=== PATIENT | female | born 1980 | race Caucasian/White ===

== ENCOUNTER 2016-11-30 20:27 | Emergency (ER) | payer OTHER ==
[2016-11-30 20:44] VITALS: BP 122/70; PULSE 93; RESP 20; TEMP 98.7
[2016-11-30] MEDS ORDERED: IBUPROFEN 800 MG TAB PO STA (20:53)
--- NOTE | 2016-11-30 21:04 | ED ---
Lower Extremity Injury HPI - General Chief Complaint: Extremity Injury, Lower Stated Complaint: Rt foot injury (trampoline) Time Seen by Provider: 11/30/16 20:47 Source: patient Mode of arrival: ambulatory Limitations: no limitations - History of Present Illness Initial Comments: Patient is a 36-year-old white female presenting to the emergency department with complaints of right ankle and right foot pain and swelling. Patient states she was jumping on a trampoline at [employer] when she fell and twisted her ankle. Patient states she heard a pop when it happened Patient denies previous injury or surgery to her right lower extremity. Patient currently rates her pain 8 out of 10, described as sharp, exacerbated with movement, somewhat relieved with rest. Patient was unable to ambulate at the scene of accident, is able to ambulate in the emergency department. Patient denies recent illness, chills, fevers, shortness of breath, nausea, chest pain, or abdominal pain. Patient denies numbness or tingling. No treatment prior to arrival. Type of Injury: unknown Place: other Improves With: immobilization Worsens With: weight bearing, movement, palpation Context: jumping Associated Symptoms: snap/pop sensation, swelling, unable to bear weight - Related Data Previous Rx's Medication Instructions Recorded HYDROcodone/APAP 5-325MG [[place] 1 tab PO Q4HR PRN #12 tab 11/30/16 5-325] Ibuprofen [Motrin] 800 mg PO Q8HR PRN #20 tab 11/30/16 Allergies Allergy/AdvReac Type Severity Reaction Status Date / Time No Known Allergies Allergy Verified 11/30/16 20:43 Review of Systems ROS Statement: Those systems with pertinent positive or pertinent negative responses have been documented in the HPI. ROS Other: All systems not noted in ROS Statement are negative. Past Medical History Past Medical History: No Reported History History of Any Multi-Drug Resistant Organisms: None Reported Past Surgical History: Tubal Ligation Past Psychological History: No Psychological Hx Reported Smoking Status: Never smoker Past Alcohol Use History: None Reported Past Drug Use History: None Reported General Exam Limitations: no limitations General appearance: alert, in no apparent distress Head exam: Present: atraumatic, normocephalic Eye exam: Present: normal appearance Neck exam: Present: normal inspection, full ROM. Absent: tenderness Respiratory exam: Present: normal lung sounds bilaterally. Absent: wheezes, rales, rhonchi Cardiovascular Exam: Present: regular rate, normal rhythm, normal heart sounds GI/Abdominal exam: Present: soft, normal bowel sounds. Absent: distended, tenderness Right Lower Leg exam: Present: normal inspection, full ROM. Absent: tenderness, swelling Ankle exam: Absent: tenderness, swelling Foot/Toe exam: Present: tenderness (Tenderness, swelling, and ecchymosis to the lateral aspect of right ankle), swelling, ecchymosis Neurovascular tendon exam: Present: no vascular compromise, significant pain with passive ROM of distal joint. Absent: pulse deficit, abnormal cap refill, motor deficit, sensory deficit, tendon deficit, extremity cold to touch, pallor , abnormal 2-point discrimination, decreased fine/light touch, foot drop Gait: not tested/not observed Back exam: Present: normal inspection Neurological exam: Present: alert, oriented X3, other (No focal deficits) Psychiatric exam: Present: normal affect, normal mood Skin exam: Present: warm, dry, intact, normal color Course Vital Signs 11/30/16 20:40 Temperature 98.7 F Pulse Rate 93 Respiratory 20 Rate Blood Pressure 122/70 O2 Sat by Pulse 100 Oximetry Medical Decision Making - Medical Decision Making Right ankle sprain. X-ray of right ankle negative for acute fracture. Krishna wrap applied to right ankle and foot. Patient instructed to follow-up with orthopedic surgeon if pain persists in 7-10 days for further imaging. Patient agrees to treatment plan. This has instructions and return parameters reviewed. - Radiology Data Radiology results: report reviewed Right foot x-ray: No acute fractures are evident. Joint spaces are preserved. Soft tissue normal. Right ankle x-ray: Ankle block T6 intact. Soft tissues are normal. No acute fractures are evident. Disposition Clinical Impression: Sprain of right ankle Disposition: HOME SELF-CARE Condition: Good Instructions: Ankle Sprain (ED) Additional Instructions: Avoid activity that causes pain Ice 20 minutes 4 times a day usually for 2-3 days Krishna wrap to provide support and limit swelling Keep elevated as much as possible 24-48 hours. Continue prescribed anti-inflammatory and opiates. Return to the emergency department with symptoms of increased swelling, pain, numbness, tingling, or foot feeling cold to touch. Follow-up with primary service and orthopedic service as directed in 7-10 days if pain persists for follow-up x-ray. Prescriptions: HYDROcodone/APAP 5-325MG [[place] 5-325] 1 tab PO Q4HR PRN #12 tab PRN Reason: Pain Ibuprofen [Motrin] 800 mg PO Q8HR PRN #20 tab PRN Reason: Pain Referrals: Kiel Cardona MD [Primary Care Provider] - 1-2 days Juan Jose Novoa MD [STAFF PHYSICIAN] - 1-2 days Time of Disposition: 21:48
--- NOTE | 2016-11-30 21:36 | XR ---
EXAMINATION TYPE: XR ankle complete RT DATE OF EXAM: 11/30/2016 9:04 PM COMPARISON: NONE HISTORY: Pain TECHNIQUE: 3 view right ankle FINDINGS: Ankle mortise is intact. Soft tissues are normal. No acute fractures are evident. Follow-up study can be performed 7-10 days from acute trauma for continued pain. IMPRESSION: 1. Normal three-view right ankle
--- NOTE | 2016-11-30 21:37 | XR ---
EXAMINATION TYPE: XR foot complete RT DATE OF EXAM: 11/30/2016 9:04 PM COMPARISON: NONE HISTORY: Injury, pain TECHNIQUE: 3 view right foot FINDINGS: No acute fractures are evident. Joint spaces are preserved. Soft tissues are normal. Follow -up exam can be performed 7-10 days from acute trauma for continued pain IMPRESSION: 1. Normal three-view right foot
== END 2016-11-30 21:54 | disposition home or self-care (01) ==
LOC: EC 20:27
DX: S93.401A Sprain of unspecified ligament of right ankle, initial encounter (principal); Y93.44 Activity, trampolining
CPT/HCPCS: 99284

== ENCOUNTER 2019-09-02 20:32 | Emergency (ER) | payer BC, OTHER ==
[2019-09-02] MEDS ORDERED: ONDANSETRON 4 MG/2 ML VIAL IVP STA (21:33)
[2019-09-02] MEDS ORDERED: KETOROLAC 30 MG/ML 1 ML VIAL IVP STA (21:33)
[2019-09-02] MEDS ORDERED: SODIUM CHLORIDE 0.9% 1,000 ML IV STA (21:33)
[2019-09-02] MEDS ORDERED: HYDROmorphone 0.5 MG/0.5 ML SYRINGE IVP STA (21:33)
[2019-09-02 21:46] LABS: Basophils % (A) 1 %; Eosinophils # (A) 0.1 k/uL (0-0.7); Eosinophils % (A) 1 %; HCT 37.4 % (34.0-46.0); HGB 12.8 gm/dL (11.4-16.0); Lymphocytes # (A) 1.7 k/uL (1.0-4.8); Lymphocytes % (A) 23 %; MCH 29.8 pg (25.0-35.0); MCHC 34.2 g/dL (31.0-37.0); MCV 87.3 fL (80.0-100.0); Mean Platelet Volume 6.8; Monocytes # (A) 0.5 k/uL (0-1.0); Monocytes % (A) 7 %; Neutrophils % (A) 66 %; Platelet Count 280 k/uL (150-450); RBC 4.28 m/uL (3.80-5.40); RDW 12.7 % (11.5-15.5); WBC 7.5 k/uL (3.8-10.6)
[2019-09-02 21:55] LABS: Albumin 4.3 g/dL (3.5-5.0); Calcium 9.3 mg/dL (8.4-10.2); Potassium 4.2 mmol/L (3.5-5.1); Total Bilirubin 0.7 mg/dL (0.2-1.3); Total Protein 7.6 g/dL (6.3-8.2)
[2019-09-02 21:56] LABS: Appearance,Urine Cloudy (Clear); Bilirubin,Urine Negative (Negative); Blood,Urine Large (Negative); Color,Urine Light Red; Glucose,Urine (UA) Negative (Negative); Ketones,Urine 1+ (Negative); Leukocyte Esterase,Urine Large (Negative); Mucus,Urine Few /hpf; Nitrite,Urine Negative (Negative); PH, Urine 6.5 (5.0-8.0); Protein,Urine 1+ (Negative); RBC,Urine >182 /hpf (0-5); Squamous Epithelial Cell,Urine 28 /hpf (0-4); Urobilinogen,Urine <2.0 mg/dL (<2.0)
[2019-09-02] MEDS ORDERED: TAMSULOSIN 0.4 MG CAP.ER.24H PO STA (21:58)
--- NOTE | 2019-09-02 22:05 | XR ---
EXAMINATION TYPE: XR KUB X 2 DATE OF EXAM: 09/02/2019 9:54 PM CLINICAL HISTORY: Pain on the left TECHNIQUE: 2 upright views COMPARISON: None. FINDINGS: Scattered gas is seen in non-distended small bowel loops. Gas and fecal material is seen in non-distended colon. Excessive volume of pancolonic stool is noted. There is no visceromegaly, pneumoperitoneum, or abnormal calcification appreciated. The visualized lung bases and pleural spaces are negative. No acute skeletal findings. IMPRESSION: No acute radiographic process.
[2019-09-02] MEDS ORDERED: ACET/COD 300 MG/30 MG STARTER PACK 6 TAB BTL PO STA (22:29)
[2019-09-02] MEDS ORDERED: IBUPROFEN 600 MG STARTER PACK 4 TAB BTL PO STA (22:29)
--- NOTE | 2019-09-02 22:31 | ED ---
General Adult HPI - General Chief complaint: Urogenital Stated complaint: kidney stone Time Seen by Provider: 09/02/19 21:15 Source: patient Mode of arrival: ambulatory - History of Present Illness Initial comments: 39-year-old female patient presents to the emergency department today for evaluation of left flank pain. Patient states this started early this morning. States it has been waxing and waning. States it does radiate around to the left lower quadrant abdomen. Patient is reporting dark urine and frequency of urination. Denies nausea or vomiting. Denies fever or chills. She has had kidney stones in the past and states this feels similar. She has not taken any medication for her symptoms. She has had tubal ligation but denies other abdominal surgeries. Patient denies any recent rash, shortness breath, chest pain, diarrhea, constipation, back pain, numbness, tingling, dizziness, weakness, headache, visual changes, or any other complaints. - Related Data Previous Rx's Medication Instructions Recorded HYDROcodone/APAP 5-325MG [[place] 1 tab PO Q4HR PRN #12 tab 11/30/16 5-325] Ibuprofen [Motrin] 800 mg PO Q8HR PRN #20 tab 11/30/16 Ibuprofen [Motrin] 600 mg PO Q8HR PRN #30 tab 09/02/19 Ondansetron [Zofran ODT] 4 mg PO Q8HR PRN #10 tab 09/02/19 Tamsulosin HCl [Flomax] 0.4 mg PO DAILY #7 cap 09/02/19 Allergies Allergy/AdvReac Type Severity Reaction Status Date / Time No Known Allergies Allergy Verified 09/02/19 21:13 Review of Systems ROS Statement: Those systems with pertinent positive or pertinent negative responses have been documented in the HPI. ROS Other: All systems not noted in ROS Statement are negative. Past Medical History Past Medical History: No Reported History History of Any Multi-Drug Resistant Organisms: None Reported Past Surgical History: Tubal Ligation Past Psychological History: No Psychological Hx Reported Smoking Status: Never smoker Past Alcohol Use History: None Reported Past Drug Use History: None Reported General Exam General appearance: alert, in no apparent distress, other (This is a well- developed, well-nourished adult female patient in no acute distress. Eitel signs upon presentation are temperature 97.9F, pulse 89, respirations 16, blood pressure 155/96, pulse ox 99% on room air.) Eye exam: Present: normal appearance, PERRL, EOMI. Absent: scleral icterus, conjunctival injection, periorbital swelling ENT exam: Present: normal exam, normal oropharynx, mucous membranes moist Respiratory exam: Present: normal lung sounds bilaterally. Absent: respiratory distress, wheezes, rales, rhonchi, stridor Cardiovascular Exam: Present: regular rate, normal rhythm, normal heart sounds. Absent: systolic murmur, diastolic murmur, rubs, gallop, clicks GI/Abdominal exam: Present: soft, normal bowel sounds. Absent: distended, tenderness, guarding, rebound, rigid Back exam: Present: normal inspection. Absent: CVA tenderness (R), CVA tenderness (L) Neurological exam: Present: alert, oriented X3, CN II-XII intact Psychiatric exam: Present: normal affect, normal mood Skin exam: Present: warm, dry, intact, normal color. Absent: rash Course Vital Signs 09/02/19 09/02/19 21:11 22:45 Temperature 997.9 F H 97.4 F L Pulse Rate 89 75 Respiratory 16 18 Rate Blood Pressure 155/96 123/73 O2 Sat by Pulse 99 98 Oximetry Medical Decision Making - Medical Decision Making 39-year-old female patient presents to the emergency department today for evaluation of left flank pain. Physical examination did reveal mild left upper abdominal pressure. Labs reviewed and did reveal urinalysis showing cloudy appearance with 1+ protein, 1+ ketones, large amount of blood, large leukocyte esterase, greater than 182 red blood cells, 129 white blood cells, 28 squamous epithelial cells, and to mucus. She is not . Patient symptoms and urine findings are consistent with kidney stone. We'll start Flomax and pain medications. She'll be discharged WITH urologist for recheck in 1-2 days. Return parameters discussed in detail. She verbalizes understanding and agrees with this plan. - Lab Data Result diagrams: 09/02/19 21:33 09/02/19 21:33 Lab Results 09/02/19 09/02/19 09/02/19 Range/Units 21:32 21:32 21:33 WBC (3.8-10.6) k/uL RBC (3.80-5.40) m/uL Hgb (11.4-16.0) gm/dL Hct (34.0-46.0) % MCV (80.0-100.0) fL MCH (25.0-35.0) pg MCHC (31.0-37.0) g/dL RDW (11.5-15.5) % Plt Count (150-450) k/uL Neutrophils % % Lymphocytes % % Monocytes % % Eosinophils % % Basophils % % Neutrophils # (1.3-7.7) k/uL Lymphocytes # (1.0-4.8) k/uL Monocytes # (0-1.0) k/uL Eosinophils # (0-0.7) k/uL Basophils # (0-0.2) k/uL Sodium 140 (137-145) mmol/L Potassium 4.2 (3.5-5.1) mmol/L Chloride 108 H (98-107) mmol/L Carbon Dioxide 23 (22-30) mmol/L Anion Gap 9 mmol/L BUN 22 H (7-17) mg/dL Creatinine 1.04 (0.52-1.04) mg/dL Est GFR (CKD-EPI)AfAm 80 (>60 ml/min/1.73 sqM) Est GFR (CKD-EPI)NonAf 69 (>60 ml/min/1.73 sqM) Glucose 99 (74-99) mg/dL Calcium 9.3 (8.4-10.2) mg/dL Total Bilirubin 0.7 (0.2-1.3) mg/dL AST 31 (14-36) U/L ALT 46 (9-52) U/L Alkaline Phosphatase 94 (38-126) U/L Total Protein 7.6 (6.3-8.2) g/dL Albumin 4.3 (3.5-5.0) g/dL Amylase 89 (30-110) U/L Lipase 158 (23-300) U/L Urine Color Light Red Urine Appearance Cloudy H (Clear) Urine pH 6.5 (5.0-8.0) Ur Specific [place] 1.030 (1.001-1.035) Urine Protein 1+ H (Negative) Urine Glucose (UA) Negative (Negative) Urine Ketones 1+ H (Negative) Urine Blood Large H (Negative) Urine Nitrite Negative (Negative) Urine Bilirubin Negative (Negative) Urine Urobilinogen <2.0 (<2.0) mg/dL Ur Leukocyte Esterase Large H (Negative) Urine RBC >182 H (0-5) /hpf Urine WBC 129 H (0-5) /hpf Ur Squamous Epith Cells 28 H (0-4) /hpf Urine Mucus Few H (None) /hpf Urine HCG, Qual Not Detected (Not Detectd) 09/02/19 Range/Units 21:33 WBC 7.5 (3.8-10.6) k/uL RBC 4.28 (3.80-5.40) m/uL Hgb 12.8 (11.4-16.0) gm/dL Hct 37.4 (34.0-46.0) % MCV 87.3 (80.0-100.0) fL MCH 29.8 (25.0-35.0) pg MCHC 34.2 (31.0-37.0) g/dL RDW 12.7 (11.5-15.5) % Plt Count 280 (150-450) k/uL Neutrophils % 66 % Lymphocytes % 23 % Monocytes % 7 % Eosinophils % 1 % Basophils % 1 % Neutrophils # 5.0 (1.3-7.7) k/uL Lymphocytes # 1.7 (1.0-4.8) k/uL Monocytes # 0.5 (0-1.0) k/uL Eosinophils # 0.1 (0-0.7) k/uL Basophils # 0.0 (0-0.2) k/uL Sodium (137-145) mmol/L Potassium (3.5-5.1) mmol/L Chloride (98-107) mmol/L Carbon Dioxide (22-30) mmol/L Anion Gap mmol/L BUN (7-17) mg/dL Creatinine (0.52-1.04) mg/dL Est GFR (CKD-EPI)AfAm (>60 ml/min/1.73 sqM) Est GFR (CKD-EPI)NonAf (>60 ml/min/1.73 sqM) Glucose (74-99) mg/dL Calcium (8.4-10.2) mg/dL Total Bilirubin (0.2-1.3) mg/dL AST (14-36) U/L ALT (9-52) U/L Alkaline Phosphatase (38-126) U/L Total Protein (6.3-8.2) g/dL Albumin (3.5-5.0) g/dL Amylase (30-110) U/L Lipase (23-300) U/L Urine Color Urine Appearance (Clear) Urine pH (5.0-8.0) Ur Specific [place] (1.001-1.035) Urine Protein (Negative) Urine Glucose (UA) (Negative) Urine Ketones (Negative) Urine Blood (Negative) Urine Nitrite (Negative) Urine Bilirubin (Negative) Urine Urobilinogen (<2.0) mg/dL Ur Leukocyte Esterase (Negative) Urine RBC (0-5) /hpf Urine WBC (0-5) /hpf Ur Squamous Epith Cells (0-4) /hpf Urine Mucus (None) /hpf Urine HCG, Qual (Not Detectd) - Radiology Data Radiology results: report reviewed, image reviewed Two-view x-ray of the abdomen is obtained. Report reviewed in its entirety. Impression by Dr. Aleyda Ascencio shows no acute radiographic process. Disposition Clinical Impression: Kidney stone on left side Disposition: HOME SELF-CARE Condition: Good Instructions (If sedation given, give patient instructions): Kidney Stones (ED) Additional Instructions: Strain urine. Increase fluids. Take medications as directed for symptom relief. Follow-up with the urologist for recheck in 1-2 days. Follow up with your primary care physician for recheck in 1-2 days. Return to the emergency department immediately for any new, worsening, or concerning symptoms. Prescriptions: Tamsulosin HCl [Flomax] 0.4 mg PO DAILY #7 cap Ibuprofen [Motrin] 600 mg PO Q8HR PRN #30 tab PRN Reason: Pain Ondansetron [Zofran ODT] 4 mg PO Q8HR PRN #10 tab PRN Reason: Nausea Is patient prescribed a controlled substance at d/c from ED?: No Referrals: Kiel Cardona MD [Primary Care Provider] - 1-2 days Jaun Easley MD [STAFF PHYSICIAN] - 1-2 days Time of Disposition: 22:31
[2019-09-02 22:52] VITALS: BP 123/73; PULSE 75; RESP 18; TEMP 97.4
== END 2019-09-02 22:45 | disposition home or self-care (01) ==
LOC: EC 20:32
DX: N20.0 Calculus of kidney (principal); Z98.51 Tubal ligation status
CPT/HCPCS: 36415; 80053; 82150; 83690; 85025; 81001; 81025; 87086; 74018; 99284; 96374; 96375 ×2; 96361; J2405; J1885; J1170

== ENCOUNTER → 2022-05-01 | Outpatient (CLI) | payer BC ==
--- NOTE | 2022-05-02 18:31 | MM ---
Reason for Exam: Screening (asymptomatic). Last mammogram was performed 5 year(s) and 11 month(s) ago. Patient History: Menarche at age 13. First Full-Term at age 27. Maternal grandmother had breast cancer. Last menstrual period: 04/23/2022 Risk Values: Jihan 5 year model risk: 0.6%. NCI Lifetime model risk: 12.2%. Tissue Density: The breast tissue is heterogeneously dense. This may lower the sensitivity of mammography. Findings: Analyzed By CAD. No significant mass, suspicious microcalcification, or significant abnormality is seen. There is a small benign reniform low axillary tail lymph node on the right. Overall Assessment: Benign, BI-RAD 2 Management: Screening Mammogram of both breasts in 1 year. 1. Patient should continue monthly self breast exams. 2. A clinical breast exam by your physician is recommended on an annual basis. 3. This exam should not preclude additional follow-up of suspicious palpable abnormalities. Electronically signed and approved by: Andrea Blount M.D. Radiologist
== END | disposition home or self-care (01) ==
LOC: RADMAMWWP 16:47
PROVIDERS: ATTEND Pediatrics
DX: Z12.31 Encounter for screening mammogram for malignant neoplasm of breast (principal); Z80.3 Family history of malignant neoplasm of breast
CPT/HCPCS: 77063; 77067

== ENCOUNTER → 2022-09-18 | Outpatient (CLI) | payer BC | END | disposition home or self-care (01) | LOC: LABPAT 16:02 | PROVIDERS: ATTEND Obstetrics & Gynecology | DX: Z53.9 Procedure and treatment not carried out, unspecified reason (principal) ==

== ENCOUNTER 2022-09-24 08:37 | Day surgery (SDC) | payer BC ==
[2022-09-18 18:41] LABS: Basophils # (A) 0.1 k/uL (0-0.2); Basophils % (A) 1 %; Eosinophils # (A) 0.2 k/uL (0-0.7); Eosinophils % (A) 3 %; HCT 35.9 % (34.0-46.0); HGB 12.2 gm/dL (11.4-16.0); Lymphocytes # (A) 1.3 k/uL (1.0-4.8); Lymphocytes % (A) 22 %; MCH 29.9 pg (25.0-35.0); Mean Platelet Volume 8.6; Monocytes # (A) 0.4 k/uL (0-1.0); Monocytes % (A) 7 %; Neutrophils # (A) 3.8 k/uL (1.3-7.7); Neutrophils % (A) 65 %; Platelet Count 269 k/uL (150-450); RBC 4.09 m/uL (3.80-5.40); RDW 13.6 % (11.5-15.5); WBC 5.9 k/uL (3.8-10.6)
[2022-09-19 13:56] VITALS: BMI 46.0
[~2022-09-24 08:37] MED LIST: DEXAMETHASONE SOD PHOSPHATE 4 MG/ML 1 ML VIAL IV ONE; HYDROmorphone 0.5 MG/0.5 ML SYRINGE IVP PRN; LACTATED RINGERS 1,000 ML IV SCH; LIDOCAINE 1% (10MG/ML) FOR IV START INTRADERMA PRN; ONDANSETRON 4 MG/2 ML VIAL IVP PRN; Pre Op ABX Message 1 EACH MISC MISCELLANE ONE
[2022-09-24] MEDS ORDERED: LIDOCAINE 1% (10MG/ML) FOR IV START INTRADERMA ONE (09:18)
[2022-09-24] MEDS ORDERED: SCOPOLAMINE 1 MG/72 HR PATCH TRANSDERM ONE (09:27)
[2022-09-24] MEDS ORDERED: MIDAZOLAM 2 MG/2 ML VIAL IVP ONE (10:07)
[2022-09-24] MEDS ORDERED: PROPOFOL 10 MG/ML 20 ML VIAL IV ONE (10:09)
[2022-09-24] MEDS ORDERED: SUCCINYLCHOLINE CHLORIDE 200 MG/10 ML VIAL IV ONE (10:09)
[2022-09-24] MEDS ORDERED: fentaNYL (PF) 50 MCG/ML 2 ML AMP ONE (10:09)
[2022-09-24] MEDS ORDERED: ACETAMINOPHEN IV (For NPO) 1,000 MG/100 ML VIAL ONE (10:09)
[2022-09-24] MEDS ORDERED: KETOROLAC 30 MG/ML 1 ML VIAL ONE (10:09)
[2022-09-24] MEDS ORDERED: diphenhydrAMINE 50 MG/ML 1 ML VIAL IVP PRN (10:45)
[2022-09-24] MEDS ORDERED: IBUPROFEN 600 MG TAB PO PRN (10:45)
[2022-09-24] MEDS ORDERED: Acetaminophen-Codeine 300-30mg TAB PO PRN ×2 (10:45)
[2022-09-24] MEDS ORDERED: LACTATED RINGERS 1,000 ML IV SCH (10:45)
[2022-09-24] MEDS ORDERED: SIMETHICONE 80 MG CHEWABLE PO PRN (10:45)
[2022-09-24] MEDS ORDERED: METOCLOPRAMIDE 5 MG/ML 2 ML VIAL IVP PRN (10:45)
[2022-09-24] MEDS ORDERED: ONDANSETRON 4 MG/2 ML VIAL IVP PRN (10:45)
[2022-09-24] MEDS ORDERED: KETOROLAC 15 MG/ML 1 ML VIAL IVP PRN (10:45)
--- NOTE | 2022-09-24 10:53 | P.OP ---
Date of Procedure: 09/24/22 Preoperative Diagnosis: #1. Menometrorrhagia Postoperative Diagnosis: Same Procedure(s) Performed: #1. Diagnostic hysteroscopy #2. Dilation and curettage #3. NovaSure endometrial ablation Anesthesia: HARSHAL Surgeon: Scot Coleman Estimated Blood Loss (ml): 5 IV fluids (ml): 500 Urine output (ml): 50 Pathology: other (Endometrial curettings) Condition: stable Disposition: PACU Operative Findings: Preoperative pelvic examination demonstrated a roughly 5 week midplane mobile normal shaped uterus with normal adnexa bilaterally. Intraoperatively, the uterus sounded to approximate 9-10 cm with a cervical length of approximately 3-1/2-4 cm. The diagnostic hysteroscope was utilized to view both tubal ostia. There was a moderate amount of shaggy endometrial tissue primarily along the posterior wall of the uterus leading to the decision to perform curettage. Minimal tissue was returned with curettage. The settings for the NovaSure tool where a length of 6.0 cm, a width of 3.0 cm for a total power 199 W. After total run time of 102 seconds, the base unit read "procedure complete." The postprocedural result appeared to be excellent. The patient is a poor candidate for vaginal hysterectomy should become necessary in the future. Description of Procedure: The patient was prepped and draped in usual fashion after general endotracheal anesthesia was administered by the anesthesiologist. A weighted speculum was placed in the bladder draining approximately 50 mL of clear irineo urine. The anterior lip of the cervix was grasped with a single-tooth tenaculum and uterus sounded to approximately 10 cm with an estimated cervical length of about 4 cm. Serial dilation was carried out to admit the diagnostic hysteroscope which was placed to the fundus and the cavity distended with normal saline. The bilateral tubal ostia were seen. There was a moderate amount of shaggy endometrial tissue along the posterior aspect of the fundal portion of the uterus prompting sharp curettage. A Telfa was placed in the vagina and a medium sharp curet introduced and thorough and circumferential curettage carried out onto the Telfa which did not produce a significant amount of tissue. The curet was then set aside and the NovaSure tool placed into the endometrial cavity, opened, and seated well. The settings were as noted above with a length of 6.0 cm, a width of 3.0 cm for a total power of 99 W. The cavity check was attempted and passed without difficulty, the tool was enabled, and the run was started. After total run time of 102 seconds, the Krishna unit read "procedure complete." Tool was closed, removed, and discarded. The diagnostic hysteroscope was replaced result appeared quite good though there was still some shaggy tissue and blood in the saline obscuring closer evaluation. All instrumentation was removed from the patient. There is no significant ongoing bleeding from the cervix or the tenaculum sites. Estimated blood loss for the case was 5 mL or less. There were no complications. All sponge, instrument, needle counts were correct. The patient is a relatively poor candidate for vaginal hysterectomy should become necessary in the future making a da Loulou approach more preferable. The patient tolerated the procedure well and proceeded to the recovery room in stable condition.
[2022-09-24 11:03] VITALS: TEMP 97.6
[2022-09-24] MEDS ORDERED: HYDROcodone/APAP 5-325MG 1 EACH TAB ONE (11:40)
[2022-09-24] MEDS ORDERED: ONDANSETRON 4 MG/2 ML VIAL IVP ONE (11:43)
[2022-09-24] MEDS ORDERED: HYDROcodone/APAP 5-325MG 1 EACH TAB PO ONE (11:44)
[2022-09-24 12:33] VITALS: BP 132/80; PULSE 76; RESP 16
== END 2022-09-24 12:33 | disposition home or self-care (01) ==
LOC: OR 08:37
PROVIDERS: ATTEND Obstetrics & Gynecology
DX: N92.1 Excessive and frequent menstruation with irregular cycle (principal); E66.01 Morbid (severe) obesity due to excess calories; Z68.20 Body mass index [BMI] 20.0-20.9, adult; Z98.51 Tubal ligation status; Z79.899 Other long term (current) drug therapy
CPT/HCPCS: 58563; 81025; 85025; J2250; J0330; J1100; J2405; J3010; J1885; J0131; J2704

== ENCOUNTER → 2023-10-06 | Outpatient (CLI) | payer BC ==
--- NOTE | 2023-10-07 18:01 | MM ---
Reason for Exam: Screening (asymptomatic). Last mammogram was performed 1 year(s) and 5 month(s) ago. Patient History: Menarche at age 13. First Full-Term at age 27. Maternal grandmother had breast cancer, age 55. Risk Values: Jihan 5 year model risk: 0.7%. NCI Lifetime model risk: 12.0%. Prior Study Comparison: 06/28/2016 Bilateral MG screening mammo w CAD - 2, [facility]. 05/01/2022 Bilateral MG 3D screening mammo w/cad, [facility]. Tissue Density: The breast tissue is heterogeneously dense. This may lower the sensitivity of mammography. Findings: Analyzed By CAD. Chronic nodularity in the right breast. There is no suspicious group of microcalcifications or new suspicious mass in either breast. Overall Assessment: Benign, BI-RAD 2 Management: Screening Mammogram of both breasts in 1 year. . Patient should continue monthly self-breast exams. A clinical breast exam by your physician is recommended on an annual basis. This exam should not preclude additional follow-up of suspicious palpable abnormalities. Note on Jihan scores and lifetime risk: 1. A Jihan score greater than 3% is considered moderate risk. If this is the case, consider specialist referral to assess eligibility for a risk reducing agent. 2. If overall lifetime risk for the development of breast cancer is 20% or higher, the patient may qualify for future screening with alternating mammogram and breast MRI. Electronically signed and approved by: Andrea Blount M.D. Radiologist
== END | disposition home or self-care (01) ==
LOC: RADMAMWWP 16:39
PROVIDERS: ATTEND Pediatrics
DX: Z12.31 Encounter for screening mammogram for malignant neoplasm of breast (principal); Z80.3 Family history of malignant neoplasm of breast
CPT/HCPCS: 77063; 77067